=== PATIENT | male | born 1995 | race Caucasian/White ===

== ENCOUNTER 2018-01-03 21:05 | Emergency (ER) | payer OTHER, SELFPAY ==
[2018-01-03 22:11] VITALS: BP 135/81; PULSE 87; RESP 18; TEMP 37; O2SAT 100
--- NOTE | 2018-01-03 22:34 | ED.GENADUL_ITS ---
Disposition Clinical Impression: Plant allergic contact dermatitis Disposition: HOME Condition: Good Instructions: Prednisone (By mouth), Poison Priscila (ED) Additional Instructions: Continue to use the Benadryl and the spray that you have to help with itching. Take prednisone as directed. Follow-up with primary care next week if not getting better. Return to ED if worse with increasing pain, swelling, fever. Prescriptions: PredniSONE [Deltasone] 40 mg PO DAILY #6 tab Referrals: Sallie Em NP [Primary Care Provider] - Medical Decision Making - Medical Decision Making Patient with evidence of plant contact dermatitis to all 4 extremities. He has definite areas of vesicle like blisters in a linear pattern as well as erythema , excoriation, swelling. This all is consistent with the plant contact dermatitis he is reporting. He will be started on prednisone and is given a burst here. He will continue Benadryl as needed for itching. He did find a spray that seems to work topically controlling symptoms as well and will continue this. Follow-up with primary care next week if not better as steroids and. Return to ED for fever, increasing pain, redness, swelling. History of Present Illness - General Chief complaint: RashLesion Stated complaint: UNKNOWN Time Seen by Provider: 01/03/18 22:23 Source: patient Mode of arrival: ambulatory Limitations: no limitations - History of Present Illness Initial comments: Patient here with rash and itching to all 4 extremities. Initially started out on the upper extremities in the mid week. Presumed to be related to poison priscila or some variation thereof. He tried Zanfel soap, calamine lotion, Benadryl. The rash has continued to get worse and now involves all the exposed areas of his extremities. He actually has a fair amount of swelling and edema associated with the rash which is very pruritic in nature. He denies any other symptoms. - Related Data Ibuprofen 2 tab PO PRN PRN 04/15/13 PredniSONE [Deltasone] 40 mg PO DAILY #6 tab 01/03/18 Allergies Allergy/AdvReac Type Severity Reaction Status Date / Time No Known Allergies Allergy Unverified 01/03/18 22:13 Review of Systems Constitutional: denies: fever Eyes: denies: eye discharge ENT: denies: congestion Respiratory: denies: cough, shortness of breath Cardiovascular: denies: chest pain Gastrointestinal: denies: abdominal pain, nausea, vomiting Skin: rash, pruritus Neurological: denies: headache, weakness, numbness Past Medical History - Past Medical History Medical history: no medical history Surgical history: no surgical history - Social History Smoking status: current everyday smoker Alcohol use: none Drug use: none General Exam - General Limitations: no limitations General appearance: alert, in no apparent distress - Head Head exam: Present: atraumatic, normocephalic - Eye Eye exam: Absent: conjunctival injection - Extremities Exam Extremities exam: Present: other (Patient noted to have some swelling and edema of his extremities. There is no tenderness.). Absent: tenderness - Neurological Exam Neurological exam: Present: alert, oriented X3, CN II-XII intact. Absent: motor sensory deficit - Skin Skin exam: Present: warm, dry, intact, rash, erythema Course Vital Signs - 24 hr 01/03/18 22:11 Temperature 98.6 F Pulse 87 Respiratory 18 Rate Blood Pressure 135/81 Pulse Oximetry 100
[2018-01-03] MEDS: predniSONE 20 MG TAB 60 MG PO (22:45)
== END 2018-01-03 23:08 | disposition home or self-care (01) ==
PROVIDERS: Emergency Provider Emergency Medicine; PCP Nurse Practitioner Family
DX: L23.7 Allergic contact dermatitis due to plants, except food (principal)
CPT/HCPCS: 99283; J7512

== ENCOUNTER 2020-06-14 05:21 | Emergency (ER) | payer OTHER, SELFPAY ==
[2020-06-14 05:25] VITALS: BP 147/99; PULSE 75; RESP 22; TEMP 36.8; O2SAT 100
--- NOTE | 2020-06-14 05:32 | ED.GENADUL_ITS ---
Discharge Plan Disposition Patient Disposition: HOME Condition: Stable Discharge Details Clinical Impression: Ultraviolet keratitis Primary Care Provider: Sallie Em ED Provider: Ranjith Snell Home Meds and New Rx's Prescriptions: New erythromycin 5 mg/gram (0.5 %) ointment 0.5 inch ophthalmic (eye) TID Qty: 3.5 RF: 0 Continued ibuprofen 200 MG tablet 2 tab PO PRN PRNRF: 0 Discontinued prednisone 20 MG tablet 40 mg PO DAILY Qty: 6 RF: 0 Discharge Instructions Additional Instructions: you can take 1000mg tylenol and 600mg ibuprofen every 6 hours for pain as needed if symptoms haven't resolved in 2 days follow up with your primary care provider return to the emergency department for severe worsening pain or fevers Medical Decision Making 25 yo male who denies chronic medical problems was 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 Denies trauma to the eyes. He arrives with eyelids that are mildly erythematous and has tearing as well. Has no visible foreign bodies and on flourescein exam has superficial punctate keratitis consistent with ultraviolet keratitis. EOMI, PERRL, and has 20/30 vision in both eyes. Will d/c and advised to f/u with pcp in 1-2 days if worsening return to the emergency department Differential Diagnosis Differential Diagnosis: ultraviolet keratitis, foreign body HPI General Mode of arrival: ambulatory . Date/Time Provider Initiated Documentation: 06/14/20 05:31 . Limitations to Documentation: no limitations . Information obtained by: patient . History of Present Illness 25 year old M presents to the emergency department with the chief complaint of eye pain, described as moderate, Patient reports no radiation. Patient started experiencing this hour(s) (2) No relieving factors improve symptom(s), No exacerbating factors reported . Patient did receive the following treatments prior to arrival, none Related Data Home Medications Medication Instructions Recorded Confirmed ibuprofen 2 tab PO PRN PRN 04/15/13 01/03/18 erythromycin 0.5 inch OPHTHALMIC (EYE) TID #3.5 06/14/20 g Previous Rx's Medication Instructions Recorded erythromycin 0.5 inch OPHTHALMIC (EYE) TID #3.5 06/14/20 g Allergies Allergy/AdvReac Type Severity Reaction Status Date / Time No Known Allergies Allergy Unverified 01/03/18 22:13 General Stated Complaint: EyeProblem STACY: 4 Review of Systems All systems reviewed & are unremarkable except as noted in HPI and below Constitutional Constitutional: Denies chills, Denies fever(s) and Denies weakness Cardiovascular Cardiovascular: Denies chest pain and Denies dyspnea Respiratory Respiratory: Denies cough and Denies dyspnea Gastrointestinal Gastrointestinal: Denies abdominal pain, Denies nausea and Denies vomiting Musculoskeletal Musculoskeletal: Denies joint swelling Neurologic Neurologic: Denies weakness Psychiatric Psychiatric: Denies depression PFSH Social History Smoking/Tobacco Use Status: Never Smoking risk assessment performed?: Yes Alcohol Intake: current Alcohol Intake frequency: holidays/special occasions only Drug use: Never Substance use type: does not use Do you feel safe at home: Yes Do you feel safe in your relationship?: Yes Exam Const General: no acute distress Orientation: alert HENMT Head: normal to inspection Ears: external ears normal General nose exam: external nose normal Mouth: moist mucous membranes Eyes Alignment and Position: alignment normal Neck Neck: normal visual inspection Resp Effort & Inspection: normal respiratory effort and able to speak in complete sentences Cardio Rate: regular rate Skin General skin exam: no rashes or lesions noted Neuro General: patient alert and patient oriented x3 Extrem General: normal to inspection Psych Mental Status: mental status grossly normal Course Vital Signs Vital signs: Vital Signs Temperature 36.8 C 06/14/20 05:25 Pulse 75 06/14/20 05:25 Respiratory Rate 22 06/14/20 05:25 Blood Pressure 147/99 H 06/14/20 05:25 Pulse Oximetry 100 06/14/20 05:25 Temperature 36.8 C 06/14/20 05:25 Pulse 75 06/14/20 05:25 Respiratory Rate 22 06/14/20 05:25 Respiratory Effort 06/14/20 05:27 Blood Pressure 147/99 H 06/14/20 05:25 Blood Pressure Position Sitting 06/14/20 05:25 Pulse Oximetry 100 06/14/20 05:25 Oxygen Delivery Method Room Air 06/14/20 05:25 Oxygen Flow Rate 0 06/14/20 05:25 Pain Level 3 06/14/20 05:25
[2020-06-14] MEDS: Balanced Salt Solution 15 ML BTL (05:53)
[2020-06-14] MEDS: Tetracaine 0.5% 4 ML BTL (05:54)
[2020-06-14] MEDS: Fluorescein STRIPS 100/BOX 1 MG (05:54)
== END 2020-06-14 05:50 | disposition home or self-care (01) ==
LOC: ER 05:47
PROVIDERS: Emergency Provider Emergency Medicine; PCP Nurse Practitioner Family
DX: H16.133 Photokeratitis, bilateral (principal); X08.8XXA Exposure to other specified smoke, fire and flames, initial encounter
CPT/HCPCS: 99283

== ENCOUNTER 2022-06-05 08:44 | Outpatient (REF) | payer OTHER, SELFPAY ==
[2022-06-05 15:31] LABS: Calculated LDL 86 mg/dL (<100); Cholesterol 159 mg/dL (<200); Glucose 95 mg/dL (74-106); HDL Cholesterol 41 mg/dL (40-60); Triglyceride 161 mg/dL (<150)
== END 2022-06-05 08:45 | disposition home or self-care (01) ==
LOC: NCHCN 08:44
PROVIDERS: PCP Nurse Practitioner Family; Visit Provider Nurse Practitioner Family
DX: Z00.00 Encounter for general adult medical examination without abnormal findings (principal); Z13.1 Encounter for screening for diabetes mellitus; Z13.220 Encounter for screening for lipoid disorders
CPT/HCPCS: 80061; 82947